=== PATIENT | male | born 1955 | race Caucasian/White ===

== ENCOUNTER 2019-12-14 07:30 | Day surgery (SDC) | payer OTHER, SELFPAY ==
[~2019-12-14] VITALS: Ht 167.6 cm; Wt 79.4 kg
[2019-12-14] MEDS ORDERED: fentaNYL CITRATE/PF 100 MCG/2 ML AMP ONE (08:01)
[2019-12-14] MEDS ORDERED: MIDAZOLAM HCL 5 MG/5 ML VIAL ONE (08:01)
[2019-12-14] MEDS ORDERED: MEPERIDINE HCL/PF 100 MG/ML AMP ONE (08:18)
[2019-12-14 13:39] VITALS: BP_SYST 128
== END 2019-12-14 11:06 | disposition home or self-care (01) ==
LOC: SMU 07:30 → SDS 07:30
PROVIDERS: ATTEND Internal Medicine Gastroenterology
DX: Z12.11 Encounter for screening for malignant neoplasm of colon (principal); D12.2 Benign neoplasm of ascending colon; D12.3 Benign neoplasm of transverse colon; K57.30 Diverticulosis of large intestine without perforation or abscess without bleeding; K64.8 Other hemorrhoids; K21.9 Gastro-esophageal reflux disease without esophagitis; Z86.010 Personal history of colon polyps; Z11.59 Encounter for screening for other viral diseases
CPT/HCPCS: 45380; 45385; 88305; 99152; G0378; J2175; J2250; J7030; U0003; J3010